=== PATIENT | female | born 1955 | race Caucasian/White ===

== ENCOUNTER 2020-03-28 16:28 | Emergency (ER) | payer OTHER, SELFPAY ==
[2020-03-28 16:29] VITALS: BP 191/98; PULSE 96; RESP 16; TEMP 36.4; O2SAT 96; BMI 28.3
--- NOTE | 2020-03-28 16:43 | MRI_ITS ---
STUDY: MRI LUMBAR SPINE WITHOUT CONTRAST REASON FOR EXAM: Female, 64 years old. L leg pain x 2 weeks TECHNIQUE: Standardized fat and water weighted pulse sequences were obtained in the sagittal and axial planes. COMPARISON: None FINDINGS: T12-L1: Normal endplates. Normal disc height, hydration and morphology. Normal bilateral facet joints. Normal central canal and bilateral lateral recesses. Normal bilateral intervertebral neural foramina. Normal lumbar lordosis. There is no substantial scoliosis. Normal conus medullaris that terminates at the L1-2: There is mild posterior bulging annulus. There is ligamentous hypertrophy. There is mild central canal narrowing. Mild bilateral foraminal stenosis L2-3: Normal endplates. Normal disc height, hydration and morphology. Normal bilateral facet joints. Normal central canal and bilateral lateral recesses. Normal bilateral intervertebral neural foramina. L3-4: There is mild posterior bulging annulus. There is mild central canal narrowing. Ligamentous hypertrophy and mild facet degenerative changes. There is no foraminal stenosis. L4-5: There is posterior bulging annulus. There is mild increased T2 signal within the posterior disc margin. There is mild central canal narrowing. The is ligamentous hypertrophy with mild to moderate facet degenerative changes. There is mild right foraminal stenosis. There is no left foraminal stenosis. L5-S1: There is moderate to large left paracentral, posterior lateral disc protrusion. There is compression on the left S1 nerve root within the central canal. There is mild to moderate central canal stenosis. There is no right foraminal stenosis. There is mild left foraminal stenosis. There are moderate facet degenerative changes. Normal visualized sacral ala. Normal visualized paraspinous soft tissue structures. MRI/Spine Lumbar (Routine) IMPRESSION: At L5-S1 there is a moderate to large left paracentral, posterior lateral disc protrusion. There is compression on the left S1 nerve root within the central canal. There is mild to moderate central canal stenosis. There is no right foraminal stenosis. There is mild left foraminal stenosis. At L4-L5 there is posterior bulging annulus with likely small annular tear, mild central canal stenosis. Mild right foraminal stenosis At L1-L2 there is mild posterior bulging annulus. There is ligamentous hypertrophy. There is mild central canal narrowing. Mild bilateral foraminal stenosis Electronically Signed: Jesus Neely, at 18:57 EDT Tel , Service support ,
[2020-03-28] MEDS: Ondansetron 4 MG/2 ML Vial IV (17:13)
[2020-03-28] MEDS: Morphine 4 MG/ML Syringe IV (17:14)
--- NOTE | 2020-03-28 17:29 | ED.VIS.BACK ---
History of Present Illness Chief Complaint: Lower Extremity Injury Informant: Patient Onset: Weeks - Onset of pain 2 weeks ago worse past 48 hours Context: Sudden Onset Injury: - - No history of trauma Timing: Continuous Quality: Aching, Throbbing Location: Lumbar, Buttock, Left Leg Current Severity: Mild Maximum Severity: Severe Worsened by: improves with: Movement, Ambulation, Bending Relieved by: Nothing Associated Symptoms: Numbness, Tingling, Radiation to Left Leg, - - Denies bowel bladder dysfunction. Patient denies saddle paresthesia or anesthesia. Patient reports difficulty ambulating. Narrative: Patient is a 64-year-old woman who presents with acute left lower back pain that radiates posteriorly down to her mid foot. She complains of numbness from the popliteal fossa and radiation to the plantar surface of her foot. She denies history of prior low back problems. She is had prior cervical surgery. She is not immune suppressed. There is no history of trauma. Patient took her 's Flexeril. She was in directed that this is not advisable since there are significant complications that can occur in patients over the age of 55. Patient denies GI symptoms. She denies dysuria, frequency, urgency or hematuria. She denies night sweats or weight loss. She denies gynecologic symptoms. Prior similar symptoms: No Recent Illness/Hospitalization: No - Past Medical History (1) No significant past medical history (2) Hypertension Status: Chronic (3) GERD (gastroesophageal reflux disease) Status: Chronic Past Medical History - Allergies and Home Meds Allergies/Adverse Reactions: Allergies Penicillins Allergy (Verified 03/28/20 16:29) Hives acetaminophen [From Vicodin] Adverse Reaction (Verified 03/28/20 16:29) Nausea/Vom/Diarrhea hydrocodone [From Vicodin] Adverse Reaction (Verified 03/28/20 16:29) Nausea/Vom/Diarrhea meperidine [From Demerol] Adverse Reaction (Verified 03/28/20 16:29) Nausea/Vom/Diarrhea morphine Adverse Reaction (Verified 03/28/20 16:29) Nausea/Vom/Diarrhea Primary Care Physician: Mark Manley [Primary Care Provider] - Prior records reviewed: Yes Surgical History: noncontributory Lives: Spouse/ Significant Other Smoking Status: Never smoker Alcohol: None Drugs: None Review of Systems General: Denies: Chills, Fever, Malaise, Subjective, Sweats, Weight loss ENT: Denies: Rhinorrhea, Sore throat Cardiovascular: Denies: Chest pain, Palpitations Respiratory: Denies: Dyspnea, Cough, Dyspnea on exertion Gastrointestinal: Denies: Abdominal pain, Nausea, Vomiting, Diarrhea, Melena, Hematochezia Genitourinary: Denies: Dysuria, Hematuria, Frequency Musculoskeletal: Reports: Back pain, Extremity Pain. Denies: Myalgias, Arthralgias, Neck pain, Swelling, -, - Skin: Denies: Rash, Wounds Neurological: Reports: Parasthesia, Numbness, - - Posterior aspect left leg from the popliteal fossa and including the plantar surface of left foot. Denies: Headache Psych: Denies: Depression, Anxiety Physical Exam Vital Signs/Narrative: Vital Signs Temp Pulse Resp BP Pulse Ox 03/28/20 16:29 97.5 F L 96 16 191/98 H 96 Inital Vital Signs reviewed: Yes General: Well nourished, Well developed Head: Normocephalic, Atraumatic Eyes: Perrl, EOMI. Negative for: Pale conjunctiva, Scleral icterus ENT: Moist mucous membranes, No rhinorrhea Neck: Supple, Nontender, No lymphadenopathy, No JVD Cardiovascular: Regular rate, Regular rhythm, No murmurs, Normal S1, Normal S2 Respiratory: No distress, CTA bilaterally, Chest nontender Abdomen: Soft, Nontender, Nondistended, Normal bowel sounds, No masses Rectal: - - Normal perianal sensation and good rectal tone Back: Normal Inspection, Nontender, Negative SLR - Right, Positive SLR - Left. Negative for: Surgical Scar, Spinal tenderness, Paraspinal Tenderness, CVA tenderness Extremeties: Nontender, No edema, Strong Pulses, Symmetric. Negative for: Tenderness, Edema Skin: Normal color, No rash, No Trauma. Negative for: Cyanosis, Diaphoresis, Jaundice Neuro: Alert, Oriented, Normal Strength, Normal Sensation, Normal DTR, Normal Gait, - - Patient unable to walk on toes. She has weakness versus pain on the left side. She is unable to perform 1 legged squat on the left side. This may be secondary to pain in all likelihood. Reflexes: Right Patellar - 1+, Right Achilles - 1+, Left Patellar - Plus minus, Left Achilles - Absent. Negative for: Right Clonus, Right Babinski, Left Clonus, Left Babinski Psychological: Normal affect Diagnostic/Tx/Re-eval Impressions Lumbar Spine MRI 03/28/20 16:43 IMPRESSION: At L5-S1 there is a moderate to large left paracentral, posterior lateral disc protrusion. There is compression on the left S1 nerve root within the central canal. There is mild to moderate central canal stenosis. There is no right foraminal stenosis. There is mild left foraminal stenosis. At L4-L5 there is posterior bulging annulus with likely small annular tear, mild central canal stenosis. Mild right foraminal stenosis At L1-L2 there is mild posterior bulging annulus. There is ligamentous hypertrophy. There is mild central canal narrowing. Mild bilateral foraminal stenosis Electronically Signed: Jesus Neely, at 18:57 EDT Tel , Service support , 03/28/20 16:43 MRI Lumbar [Spine Lumbar (Routine)] [MRI] Stat - Medical Decision Making With absent ankle reflex foot drop and numbness on the lateral aspect of the left foot concern patient has L5-S1 herniated disc. Since she has no history of prior back surgery MRI was obtained to evaluate for acute herniated disc versus other causes. She was medicated with IV opiate analgesia. Patient is able to ambulate. Since she is able to ambulate will discharge with pain medicine and refer to spine surgeon. ED Disposition - Plan for ED Patient: Disposition: Home or Assisted Living Diagnosis: Herniated nucleus pulposus, L5-S1 Instructions: ED LUMBAR RADICULOPATHY Prescriptions: Oxycodone HCl/Acetaminophen [Percocet 5/325] 1 tab PO Q6H PRN PRN 5 Days #20 tab PRN Reason: Back pain Prescription Printed Referrals: Mark Manley [Primary Care Provider] - Nicholas Hernandez MD [NON-STAFF] - 5-7 Days Additional Instructions: Call Dr. Pako Hernandez's office on Monday to be seen later this week. If you are unable to urinate, loss of bowel control or unable to stand or walk because of weakness in your left lower extremity return to the emergency department immediately Do not take your 's Flexeril.
[2020-03-28 20:14] VITALS: BP 163/92; PULSE 83; RESP 16; O2SAT 98
--- NOTE | 2020-03-28 20:17 | ED.RN ---
REVIEWED D/C INSTRUCTIONS, FOLLOW UP CARE, PRESCRIPTION, AND S/S THAT WOULD WARRANT A RETURN TO THE ED WITH PT. PT VERBALIZED AN UNDERSTANDING AND DENIES FURTHER QUESTIONS FOR THIS RN. PT SKIN P/W/D, RESP EVEN AND UNLABORED, PT A&O X 3, NO DISTRESS NOTED. PT AMBULATED OUT OF ED USING CANE, GAIT STEADY.
--- OUTSIDE RECORDS SUMMARY | 2020-09-01 08:02 | XMS RPT_ITS | CCD ---
:1955 External Reference #:[id number] Author Organization [facility] Care Team Providers Name Role Phone Adrien Hernandez MD Unavailable Jac Fox Unavailable BROWN Admitting Unavailable BROWN Attending Unavailable BROWN Primary Care Unavailable BROWN Consulting Unavailable PROVIDER Consulting Unavailable PROVIDER Consulting Unavailable PROVIDER Consulting Unavailable BROWN Admitting Unavailable BROWN Attending Unavailable BROWN Primary Care Unavailable BROWN Consulting Unavailable PROVIDER Consulting Unavailable PROVIDER Consulting Unavailable PROVIDER Consulting Unavailable BROWN Admitting Unavailable BROWN Attending Unavailable BROWN Primary Care Unavailable BROWN Consulting Unavailable PROVIDER Consulting Unavailable PROVIDER Consulting Unavailable PROVIDER Consulting Unavailable WINKLER, C Admitting Unavailable WINKLER, C Attending Unavailable BROWN Referring Unavailable WINKLER, C Primary Care Unavailable BROWN Consulting Unavailable PROVIDER Consulting Unavailable PROVIDER Consulting Unavailable PROVIDER Consulting Unavailable BROWN Consulting Unavailable BROWN Admitting Unavailable BROWN Attending Unavailable BROWN Primary Care Unavailable PROVIDER Consulting Unavailable PROVIDER Consulting Unavailable PROVIDER Consulting Unavailable Allergies Reported Allergen Reaction(s) Severity Date of Onset Location Acetaminophen / Moderate Romain Pomeren e [facility] Rep[facility] (Qualifier Value) atorvastatin Moderate Romain Pomerene ([facility]) Repository (Qualifier Value) Meperidine Moderate Romain Pomerene ([facility]) Repository (Qualifier Value) Meperidine Moderate Romain Pomerene ([facility]) Repository (Qualifier Value) Morphine Moderate Romain Pomerene ([facility]) Repository (Qualifier Value) Penicillin hives Critical, 04-02-2020 - [facility] Critical [facility]opa[facility] vee ([id number]) Penicillin Moderate Romain Pomerene ([facility]) Repository (Qualifier Value) Penicillins Moderate Romain Pomerene ([facility]) Repository (Qualifier Value) Piroxicam Moderate Romain Pomerene ([facility]) Repository (Qualifier Value) Medications Medication Name Sig Date Prescriber Location Acetaminophen / PERCOCET 5-325 MG TABS [facility] oxyCODONE one tablet every 6 0 Orthopaed ic hours as needed [facility] OXYCODONE-ACETAMINOPHEN (443 63) [phone] Nicholas Hernandez MD amLODIPine AMLODIPINE BESYLATE 5 [facility] MG TABS one tablet 0 Orthopaed ic daily Center - No rth AMLODIPINE BESYLATE [facility] inic [phone] Nicholas Jurado ([id number] ) Mary PILLAI Losartan LOSARTAN POTASSIUM 100 [facility] MG TABS one tablet 0 Orthopaed ic daily Center - No rth LOSARTAN POTASSIUM [facility] Cli vee [phone] Nicholas Jurado (03823 ) Mary PILLAI methylPREDNISolone MEDROL 4 MG TBPK take [facility] as directed 0 Mary PILLAI Ortho paedic METHYLPREDNISOLONE [facility] [phone] [facility] Mary PILLAI (07102) Omeprazole OMEPRAZOLE 40 MG CPDR [facility] one capsule daily 0 Orthopaedi c OMEPRAZOLE [facility] [phone] [facility] Mary PILLAI (35317) Problems Active Problems Category Problem Name Status Date Location Nausea and vomiting Nausea [facility] Other aftercare Surgical follow-up Active 05-19-2020 - [facility] (14299) Spondylosis; Intervertebral disc Active 04-02-2020 - [facility] intervertebral disc disorders with [facility] Center disorders; other back radiculopathy, lumbar - [facility] problems region Clinic (91120) Past or Other Problems Category Problem Name Status Date Location Other injuries and Unspecified injury Completed 09-02-2019 - Alberto Singletary conditions due to of right foot, [facility] external causes initial encounter (88542) Unclassified Problem [facility] (98899) Results Result Name Value Range Unit Interpretation Flag Date Location tsh on 2020-08-11 TSH Qn 1.32 0.40-4.50 mIU/L Normal 08-11-2020 [facility] (59581) Comment: Performed By: #### 42322, 37 2, 899 #### [facility], [address] [place] [address] Lab Manager: Indio solano MD comprehensive metabolic panel on 2020-08-11 Albumin [Mass/Vol] 4.2 3.6-5.1 g/dL Normal 08-11-2020 [facility] (01926) Comment: Performed By: #### 72200, 37 2, 899 #### [facility], [address] [place] [address] Lab Manager: Indio solano MD Albumin/Globulin [Mass 1.6 1.0-2.5 (calc) Normal 020 [facility] ratio] (36236) Comment: Performed By: #### 75431, 37 2, 899 #### [facility], [address] [place] [address] Lab Manager: Indio solano MD ALP [Catalytic 116 37-153 U/L Normal 08-11-2020 [facility] (75429) activity/Vol] Comment: Performed By: #### 67250, 37 2, 899 #### [facility], [address] [place] [address] Lab Manager: Indio solano MD ALT [Catalytic activity/Vol] 14 6-29 U/L Normal 0 08-11-2020 [facility] (27779) Comment: Performed By: #### 86852, 37 2, 899 #### [facility], [address] [place] [address] Lab Manager: Indio solano MD AST [Catalytic activity/Vol] 14 10-35 U/L Normal 0 08-11-2020 [facility] (33703) Comment: Performed By: #### 61465, 37 2, 899 #### [facility], [address] [place] [address] Lab Manager: Indio solano MD Bilirubin [Mass/Vol] 0.5 0.2-1.2 mg/dL Normal 0 [facility] (38745) Comment: Performed By: #### 06825, 2, 899 #### [facility], [address] [place] [address] Lab Manager: Indio solano MD Calcium [Mass/Vol] 9.6 8.6-10.4 mg/dL Normal 08-11-2020 [facility] (64800) Comment: Performed By: #### 38448, 2, 899 #### [facility], [address] [place] [address] Lab Manager: Indio solano MD Chloride [Moles/Vol] 100 98-110 mmol/L Normal 0 [facility] (31461) Comment: Performed By: #### 48406, 2, 899 #### [facility], [address] [place] [address] Lab Manager: Indio solano MD CO2 [Moles/Vol] 21 20-32 mmol/L Normal 08-11-[address] [facility] (63427) Comment: Performed By: #### 57986, 2, 899 #### [facility] [address] Lab Manager: Indio solano MD Creatinine [Mass/Vol] 0.87 0.50-0.99 mg/dL Normal 08-11-20 20 [facility] (62467) Comment: Result Comment: For patients >49 years of age, the reference limit for Creatinine is approximat paulo 13% higher for people identified as -Americ an. Performed By: #### 30155, 2, 899 #### [facility], [address] [place] [address] Lab Manager: Indio solano MD eGFR NON-AFR. 70 > OR = 60 mL/min/1.73m2 Normal 08-11-2020 [facility] GABONESE (21539) Comment: Performed By: #### 06315, 37 2, 899 #### [facility], [address] [place] [address] Lab Manager: Indio solano MD GFR/1.73 sq M 82 > OR = 60 mL/min/1.73m2 Normal 08-11-2020 [facility] predicted among (000 00) blacks MDRD (S/P/Bld) [Vol rate/Area] Comment: Performed By: #### 97492, 37 2, 899 #### [facility], [address] [place] [address] Lab Manager: Indio solano MD Globulin (S) 2.6 1.9-3.7 g/dL (calc) Normal 08-11-2020 [facility] [Mass/Vol] (38785) Comment: Performed By: #### 42442, 37 2, 899 #### [facility], [address] [place] [address] Lab Manager: Indio solano MD Glucose [Mass/Vol] 353 65-99 mg/dL High 08-11-2020 [facility] (53120) Comment: Result Comment: Fasting reference interval For someone without known di abetes, a glucose value >125 mg/dL indicates t hat they may have diabetes and this should be confirmed with a follow-up test. Performed By: #### 04916, 37 2, 899 #### [facility], [address] [place] [address] Lab Manager: Indio solano MD Potassium [Moles/Vol] 4.4 3.5-5.3 mmol/L Normal 08-11-20 20 [facility] (42240) Comment: Performed By: #### 51766, 37 2, 899 #### [facility], [address] [place] [address] Lab Manager: Indio solano MD Protein [Mass/Vol] 6.8 6.1-8.1 g/dL Normal 08-11-2020 [facility] (30717) Comment: Performed By: ###Lucas 52709, 37 2, 899 #### [facility], [address] [place] [address] Lab Manager: Indio solano MD Sodium [Moles/Vol] 133 135-146 mmol/L Low 08-11-2020 [facility] (29892) Comment: Performed By: #### 65808, 37 2, 899 #### [facility], [address] [place] [address] Lab Manager: Indio solano MD Urea nitrogen [Mass/Vol] 21 7-25 mg/dL Normal 08-11 [facility] (40356) Comment: Performed By: #### 26350, 37 2, 899 #### [facility], [address] [place] [address] Lab Manager: Indio solano MD Urea nitrogen/Creatinine NOT APPLICABLE 05-11 Normal 08-11-2020 [facility] [Mass ratio] (09820) Comment: Performed By: #### 76797, 37 2, 899 #### [facility], [address] [place] [address] Lab Manager: Indio solano MD c-peptide on 2019-0 08-11 C-PEPTIDE 2.48 0.80-3.85 ng/mL Normal 08-11-2020 [facility] (19434) Comment: Performed By: #### 61218, 37 2, 899 #### [facility], [address] [place] [address] Lab Manager: Indio solano MD coronavirus pcr [ccl] on 2020-06-18 COVID 19 Result DEHYDRATOR TENDER Negative CORNEG Normal 06-18-2020 [facility] ( 70861) Comment: Result Comment: Negative for COVID19 (SARS CoV2) by PCR. This test was developed and its performance characteristics determined by [facility] [place]. This test has bee n authorized by FDA under an Emergency Use Authorization (EUA). This test has been validated in accordance with the FDA's Guidance Document Policy for Diagnostics Test ing in Laboratories Certified to Perform High Complexity Testing under CLI A prior to Emergency use Authorization for Coronavirus Disease 2019 dur ing the Public Health Emergency issued on January 18, 2020. [facility] [address] [place] [address] Teddy Dick III, M.D. [id number] Performed By: #### [id number] ## ## [facility] [place] [address]68 COVID 19 Source DEHYDRATOR TENDER Nasopharyngeal Swab Normal 0 06-18-2020 [facility] ( 08666) Comment: Performed By: #### [id number] ## ## [facility] [place] [address] coronavirus 2019 on 2020-06-18 COVID 19 Result DEHYDRATOR TENDER Negative for COVID19 Normal 06-18-2020 [facility] (SARS CoV2) by PCR. Reference Lab (16825) Comment: Result Comment: Negative for This test was developed and its performance characteristics determined by [facility] [place]. This test has been authorized by FDA under an Emergency Use Authorization (EUA). This test has been validated in accordance with the FDA's Guidance Document Policy for Diagnostics Testing in Laboratories Certified to Perform High Complexity Testing under CLIA prior to Emergency use Authorization for Coronavir us Disease 2019 during the Public Health Emergency issued on January 18, 2020. COVID19 (SARS This test was developed and its performance characteristics determined by [facility] [place]. This test has been authorized by FDA under an Emergency Use Authorization (EUA). This test has been validated in accordance with the FDA's Guidance Document Policy for Diagnostics Testing in Laboratories Certified to Perform High Complexity Testing under CLIA prior to Emergency use Authorization for Coronavir us Disease 2019 during the Public Health Emergency issued on January 18, 2020. CoV2) by PCR. This test was developed and its performance characteristics determined by [facility] [place]. This test has been authorized by FDA under an Emergency Use Authorization (EUA). This test has been validated in accordance with the FDA's Guidance Document Policy for Diagnostics Testing in Laboratories Certified to Perform High Complexity Testing under CLIA prior to Emergency use Authorization for Coronavir us Disease 2019 during the Public Health Emergency issued on January 18, 2020. coronavirus 2019 on 2020-06-17 COVID 19 Source DEHYDRATOR TENDER DEHYDRATOR TENDER Normal 06-17-2020 [facility] (75653) clinical summary: hmspatientid on 2020-05-19 NOP 05-19-2020 - 05-19-2020 [facility] [place] [facility] (08367) office visit: new - 1st visit with pract maria guadalupe, rm: 1 on 2020-04-02 NEGATED: Highlighted of the lumbar on - [facility] rowMRI (magnetic 03/28/2020 at 0 [facility] [place] - resonance imaging) [facility] history imported via (31944) nucleus NEGATED: Highlighted never smoker 2019 - [facility] rowTobacco smoking 04-02-2020 [facility] [place] [facility] (14392) clinical summary: scanned history summar y on 2020-04-02 brother(s) of Unknown 04-02-2020 [facility] patient alive or 04-02-2020 Or [facility]opaedic [facility] (21728) Data entered by 5 days per week 04-02-20 20 - [facility] patient exercise 04-02-2020 Or thopaedic frequency Center - [facility] (97592) Data entered by walkingother 04-02-2020 - [facility] patient exercise 04-02-2020 Or [facility]opaedic type Center - [facility] ic (27210) data entered by No 04-02-2020 - C [facility] patient, alcohol 04-02-2020 Or thopaedic (ethanol or ETOH) Ce nter - [place] use [facility] Clin ic (83990) Data entered by Penicillin 04-02-2020 - [facility] patient, allergy 04-02-2020 Or thopaedic list Center - [facility] (27490) data entered by No 04-02-2020 - C [facility] patient, drug (of 04-02-2020 O rthopaedic abuse) use [facility] ic (88379) data entered by Retired 04-02-2020 - C [facility] patient, Employer 04-02-2020 O rthopaedic Name Center - [facility] (75638) data entered by No 04-02-2020 [facility] exercise 04-02-2020 O rthopaedic history Center - N orth [facility] Clin ic (54507) data entered by CancerDiabetes - non-insulin 04-02-2020 [facility] patient, father's dependentHigh blood pressure 04-02-2020 Orthopaedic medical history Cent er [facility] Clin ic (53678) Data entered by Abdominal 04-02-2020 - [facility] patient, history of SurgeryAppendectomyHand 04-02-2020 Orthopaedic past surgeries surgeryCarpal C enter - [place] [facility] surgery other (20397 ) data entered by High blood pressure 03-20 [facility] patient, mother's 04-02-2020 O rthopaedic medical history Cent er [facility] Clin ic (95849) data entered by High blood 04-02-2020 [facility] patient, past pressureObstructive sleep 04-02-2020 Orthopaedic medical history apneaStomach C [facility] ulcersHypertension C [facility] (21937) data entered by never smoker 04-02-2020 [facility] patient, social 04-02-2020 Ort hopaedic history, current [facility] - [place] smoker [facility] Clin ic (71349) data entered by 04-02-2020 [facility] patient, social 04-02-2020 Ort hopaedic history, marital [facility] - [place] status [facility] Clin ic (27440) father of patient Alive 04-02-2020 [facility] is alive or 04-02-2020 Orthopa edic Center - [facility] ic (35305) Housing Type: House 04-02-2020 - [facility] apartment, house, 04-02-2020 [facility], Ce nt - [facility] Clin ic (05026) housing unit size 1 Floor 04-02-2020 - [facility] (asthma 04-02-2020 Orthopaed ic environmental [facility] history, housing) Co ast Clinic (from single family (16606) to don't know) medical history of Diabetes - non-insulin 04-02-2020 [facility] patient's sister dependent 04-02-2020 Or thopaedic Center [facility] ic (28129) mother of patient Alive 04-02-2020 - [facility] is alive or 04-02-2020 Orthopa edic Center - N [facility] ic (29176) clinical summary: hmspatientid on 2020-04-02 NOP 04-02-2020 - 04-02-2020 [facility] Orthopaedic Center - N [facility] (84751) emergency report on 2019-09-27 EMERGENCY REPORT [facility] Normal 09-27 [facility] EMERGENCY ROOM REPORT (03286) NAME ACCOUNT SEX AGE ADMIT DISCHARGE PT MED. RECORD# NUMBER DATE DATE TYPE CASIE [id number] F 64 09/24/19 09/24/19 3 LIANNE Bacon [address] ROOM: ER DATE OF : 1955 DICTATING PHYSICIAN: Govind Winkler CHIEF COMPLAINT: Dizziness. HISTORY OF PRESENT ILLNESS: Patient states yesterday she felt fine. After awaking today, she was up and ambula tory and while doing so, had an episode of dizziness that started when she was moving. She had a headache with this and felt unsteady and spinning sensation. She took some Tylenol and laid down and slept for several hours and felt better when she wok e up. She was lying on the bed, talking on the phone without any symptoms, but as soon as she stood up, she developed fairly marked vertigo again with nausea, v omiting and some minimal diaphoresis. She states it is not bad if she lies very still. She continues to have some ongoing nausea. Mild headache at this point, but not severe. No chest pain. No shortness of breath. No numbness or tingling to her extremities. She is able to ambulate with assistance, feeling a bit unsteady. She has not had ep isodes like this in the past, though has had some slight dizziness in the past. PAST MEDICAL HISTORY: Significant for hypertension, divertic ulitis. PAST SURGICAL HISTORY: Previous hysterectomy, appendec jayden, cholecystectomy. MEDICATIONS: Per medication reconciliation list. ALLERGIES: Multiple allergies per allergy list. SOCIAL HISTORY: She lives at home. Accom panied here with her . She does not smoke or drink alcohol. REVIEW OF SYSTEMS: No recent injury or trauma. No underlying heart or lung disease. No underlying neuro logic abnormality. She has no hearing deficits. No tinnitus. No bowel or bladder complaints. PHYSICAL EXAMINATION: A 64-year-old, pleasant female, alert and appropriate. Patient does not appear toxi c. Her skin is pink, warm and dry. Pupils are equal, round and reactive to light. Extra ocular muscles are intact. TMs, nose, mouth and throat all within normal limits. Neck i s supple without adenopathy. No carotid bruits or masses. Lungs are clear. No crackles or wheezes. Cardiac examination: Regular rhythm without any ectopy, murmurs, gallops or rubs. Abdomen is soft and nontender. She moves all Page 1 of 2 LIANNE JASON Emergency Room Report LIANNE JASON : 1955 extremities appropriately. N o focal weaknesses. Good peripheral pulses. Good capillary refill. Vital signs: Tempera ture 98.6, pulse 71, respirations 18, blood pressure 173/96. O2 saturation was 100%. DIAGNOSTIC DATA: Head CT was negative. A number of lab studies were obtained. These were all within normal limits. EMERGENCY DEPARTMENT COURSE AND TREATMENT: IV of normal sali ne was placed. She was given a lite r of IV fluids. Was given some Phenergan IV, some Zofran orally, and some meclizine o rally. She states that with the above meds and IV fluids, her nausea had resolved complete ly and her dizziness she states was about in half. Discussed management with her. Did feel like she wanted to go home and she was given a prescription for mec lizine, very limited activity. Also given a prescription for Zofran. Informed her of vest ibular rehab if symptoms do not improve significantly within the next day or 2. She is to follow up with Dr. Manley as needed returning if symptoms worsen. DIAGNOSIS: Benign positional vertigo. Dictated By: Govind Winkler MD 09/24/19 18:58 JOB #: [id number] Transcribed By: nadege 09/25/19 12:38 Electronically signed by: JUAN Winkler M.D. 09/27/19 07:06 Page 2 of 2 LIANNE JASON Emergency Room Report troponin on 2019-09 Troponin I.cardiac <0.01 0.00 - 0.05 ng/mL Normal 9 [facility] (74662) Comment: Result Comment: Elevated tro ponin (above the 99th percentile) usually indicates myocardial ischemia. Results must be in terpreted within the clinical setting. 1.Non-ischemic pathology can also cause elevated troponin levels (e.g., acute pulmonary embol ism, myocarditis, pericarditis, heart failure, intracranial injury, rhabdom yolisis, sepsis, shock and renal insufficiency). 2.Approximately 1% of health y adults have elevated troponin levels. 3.Analytical false positive results rarely occur(due to multiple interferences such as heterophile antibodi es). Performed By: #### [id number] ## ## [facility],[address] [place], [place] [address] prothrombin time and inr on 2019-09-24 INR Coag (Bld) [Relative time] Normal 09-24-2019 [facility] ( 56462) Comment: Result Comment: PROTHROMBIN TIME AND INR Performed By: #### [id number] ## ## [facility],[address] [place], [place] [address] INR Coag (PPP) [Relative 1.0 0.8 - 1.2 {INR} Normal 09-[address] [facility] ( 31989) Comment: Result Comment: THE HEMOS IL THROMBOPLASTIN REAGENT USED IN THE PROTHROMBIN TIME TEST INTERACTS WITH THE DRUG CUBICIN (DAPTOMYCIN) AND WILL RESULT IN FALSELY ELEVATED PT / INR RESULTS INR INTERPRETATION INR INDICATION PREVENTION AND TREATMENT OF THROMBOEMBOLISM ASSOCIATED WITH: 2.0 - 3.0 ATRIAL FIBRILLATIO N, BIOPROSTHETIC HEART VALVES, PULMONARY EMBOLISM, VENOUS THROMBOSIS, SYSTEMIC EMBOLISM POST MYOCARDIAL INFARCTION 2.5 - 3.5 MECHANICAL HEART V MONTIEL Performed By: #### [id number] ## ## [facility],[address] [place] [address]13 PT-COUMADIN 11.6 9.3 - 14.1 sec Normal 09-24-2019 [facility] (21050) Comment: Performed By: #### [id number] ## ## [facility],[address] [place], [place] [id number] ct brain w/o contrast on 2019-09-24 CT BRAIN W/O [facility] Normal 9 [facility] [address] [place], [place] [address] ([id number]) Patient: LIANNE JASON Phone#: : 1955 Age: 64 Gender: F Pt. Type: ER Account: [id number] Location: 052 Ordering: GOVIND WINKLER Exam Date: 09/24/2019/17:29 Family Phys: STEPHEN MANLEY Charge Code: 093323 Physician: [place] Order #: [id number] DLP Dose#: 57.5 mGy PROCEDURE: CT BRAIN WITHOUT CONTRAST COMPARISON: [facility], CT, BRAIN W/O CON, 07/15/2015, 4:43. INDICATIONS: Altered Sensory Function. TECHNIQUE: CT images were obtained without contrast material . All CT scans at this facilit y use dose modulation, iterative reconstruction, and/or weight based dosing when appropriate to reduce radiation dos e to as low as reasonably achievable. IV CONTRAST: No IV contrast used,0ml TOTAL DOSE: 57.5 CTDIvol(mGy) FINDINGS: CEREBRUM: No edema, hemorrha ge, mass, or inappropriate atrophy. Age indeterminant left external capsule lacunar infarct. CEREBELLUM: No edema, hemorrhage, mass, or inappropriate atr ophy. BRAINSTEM: No edema, hemorrhage, mass, or inappropriate atro phy. CSF SPACES: Ventricles, cist erns, and sulci are appropriate for age. No hydrocephalus, subarachnoid hemorrhage, or mass. SKULL: There is hyperostosis frontalis interna, a benign age related finding. SINUSES: Limited views demonstrate no si gnificant mucosal thickening or fluid. ORBITS: Limited views are unremarkable. OTHER: There are atheroscler otic calcifications of the intracranial arteries. There is material in the left external auditory canal. CONCLUSION: 1. Age-indeterminate lacunar infarct in the left external ca psule. 2. Otherwise no appreciable acute intracranial abnormality. Note: An acute ischemic event or extension chronic ischemic process may not be initially evid ent on CT. [facility] [address], [place] [address] Patient: LIANNE JASON Phone#: : 1955 Age: 64 Gender: F Pt. Type: ER Account: [id number] Location: [facility] Ordering: GOVIND WINKLER Exam Date: 09/24/2019/17:29 Family Phys: STEPHEN MANLEY Charge Code: 085456 Physician: [place] Order #: [id number] DLP Dose#: 57.5 mGy Dictated by: Digna Abdullahi MD on 09/24/2019 at 17:53 Approved by: Digna Abdullahi MD on 09/24/2019 at 17:53 cmp with egfr on 08-10-05 Age - Reported 64 years Normal 09-24-2019 [facility] (55068) Comment: Performed By: #### [id number] ## ## [facility],[address] [place] [address] 57193 Albumin [Mass/Vol] 4.5 3.4 - 4.8 g/dL Normal 09-24-2019 [facility] ( 86034) Comment: Performed By: #### [id number] ## ## [facility],[address] [place] [address] 73398 Albumin/Globulin [Mass 1.7 0.9 - 1.6 {ratio} High 019 [facility] ratio] [facility] (58270) Comment: Performed By: #### [id number] ## ## [facility],[address] [place] [address] 65321 ALK PHOS 82 38 - 126 U/L Normal 09-24-2019 [facility] (79407) Comment: Performed By: #### [id number] ## ## [facility],[address] [place] [address] 28954 ALT/SGPT 20 8 - 35 U/L Normal 09-24-2019 [facility] (12426) Comment: Performed By: #### [id number] ## ## [facility],[address] [place] [address] 29385 Anion gap [Moles/Vol] 14 10 - 20 mmol/L Normal 09-24-20 19 [facility] ( 87426) Comment: Performed By: #### [id number] ## ## [facility] [place] [address] 82228 AST/SGOT 16 13 - 39 U/L Normal 09-24-2019 [facility] (28747) Comment: Performed By: #### [id number] ## ## [facility],[address] [place] [address] 49465 B/C RATIO 21 0 - 30 ratio Normal 09-24-2019 [facility] (30047) Comment: Performed By: #### [id number] ## ## [facility],[address] [place] [address] 04906 Bilirubin [Mass/Vol] 0.3 0.0 - 1.5 mg/dl Normal 9 [facility] ( 71523) Comment: Performed By: #### [id number] ## ## [facility],[address] [place] [address] 57707 Calcium [Mass/Vol] 9.5 8.6 - 10.2 mg/dl Normal 09-24-2019 [facility] ( 77538) Comment: Performed By: #### [id number] ## ## [facility],[address] [place] [address] 73425 Chloride [Moles/Vol] 103 98 - 107 mmol/L Normal 9 [facility] ( 04316) Comment: Performed By: #### [id number] ## ## [facility],[address] [place] [address] 60385 CO2 [Moles/Vol] 26.8 21.0 - 31.0 mmol/L Normal 09-24-2019 [facility] ( 47743) Comment: Performed By: #### [id number] ## ## [facility],[address] [place] [address] 04144 Creatinine [Mass/Vol] 1.0 0.6 - 1.2 mg/dl Normal 09-24-20 19 [facility] ( 89038) Comment: Performed By: #### [id number] ## ## [facility],[address] [place] [address] 50966 GFR/1.73 sq M >60 60 - 999 mL/min/{1.73_m2} Normal 9 [facility] predicted [facility] non-blacks MDRD (000 00) (S/P/Bld) [Vol rate/Area] Comment: Result Comment: ACCORDING TO THE NATIONAL KIDNEY DISEASE EDUCATION PROGRAM(NKDE), A NORMAL eGFR IS A VALUE GREATER THAN OR E QUAL TO 60 ML/MIN/1.73 SQ METERS. CHRONIC KIDNEY DISEASE: <60m L/MIN/1.73 SQ METERS KIDNEY FAILURE: <15mL/MIN/1. 73 SQ METERS THIS TEST SHOULD ONLY BE USE D FOR PATIENTS 18 YEARS OF AGE AND OLDER. Performed By: #### [id number] ## ## [facility],[address] [place] [address] 14712 GFR/1.73 sq M predicted 56 60 - 999 ML/MINUTE Low 2018 [facility] among non-blacks MDRD Hospital (03294) (S/P/Bld) [Vol rate/Area] Comment: Performed By: #### [id number] ## ## [facility],[address] [place] [address] 36071 GFR/1.73 sq M predicted among Normal 09-24-2019 [facility] non-blacks MDRD (S/P/Bld) [Vol Hospital (95292) rate/Area] Comment: Result Comment: COMPREHENSIV E METABOLIC PANEL Performed By: #### [id number] ## ## [facility],[address] [place] [address] 20488 Globulin (S) [Mass/Vol] 2.7 1.5 - 3.8 G/DL Normal 2018 [facility] ( 43888) Comment: Performed By: #### [id number] ## ## [facility],[address] [facility] 84531 Glucose [Mass/Vol] 116 74 - 106 mg/dl High 09-24-2019 [facility] (58824) Comment: Performed By: #### [id number] ## ## [facility],[address] [place] [address] 14458 Potassium [Moles/Vol] 3.7 3.5 - 5.1 mmol/L Normal 09-24-20 19 [facility] ( 60547) Comment: Performed By: #### [id number] ## ## [facility],[address] [place] [address] 83106 Protein [Mass/Vol] 7.2 6.4 - 8.3 g/dl Normal 09-24-2019 [facility] ( 39162) Comment: Performed By: #### [id number] ## ## [facility],[address] [place] [address] 88638 Sodium [Moles/Vol] 140 136 - 145 mmol/l Normal 09-24-2019 [facility] ( 66736) Comment: Performed By: #### [id number] ## ## [facility],[address] [place] [address] 82469 Urea nitrogen [Mass/Vol] 21 6 - 20 mg/dl High 09-24 [facility] ( 87296) Comment: Performed By: #### [id number] ## ## [facility],[address] [place] [address] 39611 cbc + diff on 09-24 Other RARE LARGE PLATELETS Normal 9 [facility] (27696) Comment: Performed By: #### [id number] ## ## [facility],[address] [facility] 13477 Basophils (Bld) 0.10 0.00 - 0.10 x10EE3/UL Normal 09-24-2019 Jordi dipti [place] [#/Vol] [facility] (57823) Comment: Performed By: #### [id number] ## ## [facility],[address] [place] [address] 98599 Basophils/100 WBC (Bld) 0.9 0.0 - 2.0 % Normal 2018 [facility] ( 19823) Comment: Performed By: #### [id number] ## ## [facility],[address] [place] [address] 11592 CBC + DIFF Normal 09-24-2019 [facility] (99703) Comment: Result Comment: CBC-COMPLETE BLOOD COUNT Performed By: #### [id number] ## ## [facility],[address] [place] [address] 01359 Eosinophils (Bld) 0.10 0.00 - 0.50 x10EE3/UL Normal 09-24-2019 [facility] [#/Vol] [facility] (34754) Comment: Performed By: #### [id number] ## ## [facility],[address] [place] [address] 23993 Eosinophils/100 WBC (Bld) 2.0 0.0 - 7.0 % Normal [facility] ( 51767) Comment: Performed By: #### [id number] ## ## [facility],[address] [place] [address] 29684 Erythrocyte distribution 14.7 12.0 - 15.6 % Normal [facility] width (RBC) [Ratio] [facility] (76263) Comment: Performed By: #### [id number] ## ## [facility],[address] [place] [address] 34184 Hematocrit (Bld) [Volume 38.6 34.0 - 46.0 % Normal [facility] ( 73479) Comment: Performed By: #### [id number] ## ## [facility],[address] [place], [place] [id number] Hemoglobin (Bld) 13.2 12.0 - 16.0 g/dl Normal 09-24-2019 [facility] [Mass/Vol] [facility] (40688) Comment: Performed By: #### [id number] ## ## [facility],[address] [place] [address] Lymphocytes (Bld) 1.50 0.80 - 2.80 x10EE3/UL Normal 09-24-2019 [facility] [#/Vol] [facility] (08235) Comment: Performed By: #### [id number] ## ## [place] [id number] Lymphocytes/100 WBC (Bld) 19.5 20.0 - 45.0 % Low [facility] ( 71726) Comment: Performed By: #### [id number] ## ## [place] [id number] MANUAL DIFF REVIEWED Normal 09-24-2019 [facility] (51366) Comment: Performed By: #### [id number] ## ## [place] [id number] MCH (RBC) [Entitic mass] 27 27 - 33 pg Normal 09-24 [facility] ( 95207) Comment: Performed By: #### [id number] ## ## [place] [id number] MCHC (RBC) [Mass/Vol] 34 32 - 36 X10 3 Normal 09-24-20 19 [facility] ( 04628) Comment: Performed By: #### [id number] ## ## [place] [id number] MCV (RBC) [Entitic vol] 80 80 - 99 fl Normal 2018 [facility] ( 30386) Comment: Performed By: #### [id number] ## ## [facility],[address] [place] [address] 18969 Monocytes (Bld) 0.70 0.20 - 1.00 x10EE3/UL Normal 09-24-2019 [facility] [#/Vol] [facility] (42303) Comment: Performed By: #### [id number] ## ## [facility],[address] [place] [address] 18496 MONOS % 9.1 0.0 - 10.0 % Normal 09-24-2019 [facility] (85483) Comment: Performed By: #### [id number] ## ## [facility],[address] [place] [address] 14917 Morphology Sony (Bld) SEE BELOW Normal [facility] [Interp] [facility] ( 11646) Comment: Performed By: #### [id number] ## ## [facility],[address] [place] [address] 54726 Neutrophils (Bld) 5.10 1.50 - 7.10 x10EE3/UL Normal 09-24-2019 [facility] [#/Vol] [facility] (23816) Comment: Performed By: #### [id number] ## ## [facility],[address] [place] [address] 46638 Neutrophils/100 WBC (Bld) 68.5 46.0 - 76.0 % Normal [facility] ( 70136) Comment: Performed By: #### [id number] ## ## [facility],[address] [place] [address] 76225 Platelet mean volume 10.6 6.6 - 10.5 fl High 09-24-20 19 [facility] (Bld) [Entitic vol] [facility] (93226) Comment: Result Comment: AUTOMATED DI FFERENTIAL Performed By: #### [id number] ## ## [facility],[address] [place] [address] 83866 Platelets (Bld) [#/Vol] NORMAL Normal 2018 [facility] (67093) Comment: Performed By: #### [id number] ## ## [facility],[address] [place] [address] 66557 Platelets (Bld) 205 150 - 450 x10EE3/UL Normal 09-24-2019 Alberto Singletary [#/Vol] [facility] (04712) Comment: Performed By: #### [id number] ## ## [facility],[address] [place] [address] 38533 RBC (Bld) [#/Vol] 4.85 4.10 - 5.30 x 10EE6/UL Normal 9 [facility] (39708) Comment: Performed By: #### [id number] ## ## [facility],[address] [place] [address] 33877 WBC (Bld) [#/Vol] 7.5 4.5 - 10.8 x 10EE3/UL Normal 09-24-2019 [facility] ( 55919) Comment: Performed By: #### [id number] ## ## [facility],[address] [place], [place] [id number] c-reactive protein on 2019-09-24 CRP [Mass/Vol] 0.50 0.00 - 1.00 mg/dl Normal 09-24-2019 [facility] ( 19845) Comment: Performed By: #### [id number] ## ## [facility],[address] [place] [address] 06136 aptt on 2019-09-24 aPTT Coag (Bld) [Time] 28.1 25.4 - 38.4 sec Normal 09-24 [facility] ( 81189) Comment: Performed By: #### [id number] ## ## [facility],[address] [place] [address] 39218 foot complete rt on 2019-09-02 FOOT COMPLETE RT [facility] Normal 09-02 [facility] [address] [place] [address] ([id number]) Patient: LIANNE JASON Phone#: : 1955 Age: 64 Gender: F Pt. Type: Out Account: [id number] Location: 05 Ordering: STEPHEN MANLEY Exam Date: 09/02/2019/11:55 Family Phys: Charge Code: 492170 Physician: [place] Order #: [id number] DLP Dose#: PROCEDURE: X-RAY FOOT RT COMPLETE MIN 3 VIEWS COMPARISON: None. INDICATIONS: Injury. FINDINGS: BONES: No significant arthro carlotta or acute abnormality. A small calcaneal spur is present. Mild degenerative changes are present at the navicular joint . SOFT TISSUES: Negative. No visible soft tissue swelling. EFFUSION: None visible. OTHER: Negative. CONCLUSION: No acute disease. Dictated by: Netta Lynch MD on 09/02/2019 at 15:28 Approved by: Netta Lynch MD on 09/02/2019 at 15:28 final surgical pathology report on 2018-01-09 Final Surgical . Pathology ReportsAccession: Kayleigh resendez 01-09-2018 [facility] Pathology Collected Date/Time: Received [facility] ([place]) Report Date/Time: (68739) Pathologist:[id number] 01/04/2018 13:51 EST 01/05/2018 13:51 MD JAYLENE VALDEZ Final Surgical Pathology ReportDIAGNOSIS:SIGMOID COLON, SEGMENTAL RESECTION -- DIVERTICULOSIS.COMMENT:[facility] - A# [id number] INFORMATION:SIGMOID DIVERTICULOSISSPECIMEN:A COLON, RES, XTU - SIGMOID COLONGROSS DESCRIPTION:_Received in formalin labeled with the patient's name is a 25 cm in length segment of colon with a moderate amount of attached pericolonic fat. The serosa is pink and smooth. Opening shows mucosa is yellow-pink and glistening with the usual intestinal folds. There is an area of black tattooing 7 cm from the closest colonic margin. Sectioning shows no diverticula or other discrete lesions. The bowel wall averages 0.4 cm in thickness. RS -8Dictated by PHILLIP PRIEST ([facility])MICROSCOPIC DESCRIPTION:Slides reviewed.Electronically Signed byPathology Report verified by [facility] HospitalElectronically signed by JAYLENE SHELLEY MDSign out Date: 01/09/2018 09:07Performing Lab: [address] Comment: Performed By: #### SPFR #### [place] [address] final surgical pathology report on 2017-11-06 Final Surgical . Pathology ReportsAccession: Kayleigh resendez 11-06-2017 [facility] Pathology Report Collected Date/Time: Received [facility] ([place]) Date/Time: (02755) Pathologist:[id number] 11/02/2017 14:30 EST 11/03/2017 14:30 MD JAYLENE VALDEZ Final Surgical Pathology ReportDIAGNOSIS:A) DESCENDING COLON, POLYPECTOMY SPECIMEN -- TUBULAR ADENOMA.B) SIGMOID COLON, POLYPECTOMY -- TUBULAR ADENOMA.COMMENT:[facility] - A# [id number] INFORMATION:COLON CANCER SCREENINGSPECIMEN:A POLYP, COLORECT - DESCENDING COLON POLYPB POLYP, COLORECT - SIGMOID COLONGROSS DESCRIPTION:_A. Received in formalin labeled A are 3 rogel glistening soft tissues ranging from 0.3-0.4 cm, and a moderate amount of pale green debris. A S -1B. Received in formalin labeled B are 2 rogel glistening soft tissues, 0.2 and 0.4 cm in greatest dimension. A S -1Dictated by PHILLIP PRIEST ([facility])MICROSCOPIC DESCRIPTION:A&B) Slides reviewed.Electronically Signed byPathology Report verified by [facility] HospitalElectronically signed by JAYLENE SHLELEY MDSign out Date: 11/06/2017 17:57Performing Lab: [address] Comment: Performed By: #### SPFR #### [place] [address] Vital Signs Vital Sign Description Value / Unit Date Location The following section is limited to 5 en tries per type and includes entries from the following time range: 20200402 - 20200422 0. NEGATED: Highlighted 28.72 kg/m2 05-19-2020 - 05-19-[address] [facility] rowBMI (Body Mass Index) [facility] [place] [facility] ic (00701) NEGATED: Highlighted 28.72 kg/m2 04-02-2020 - 04-02-2020 [facility] rowBMI (Body Mass Index) [facility] [place] [facility] ic (22592) NEGATED: Highlighted 72 kg 05-19-2020 - 05-19-2020 [facility] rowBody weight [facility] ic (87586) NEGATED: Highlighted 72.12 kg 05-19-2019 - 05-19-2020 [facility] rowBody weight [facility] (88860) NEGATED: Highlighted 72.12 kg 04-02-2020 - 04-02-2020 [facility] rowBody weight [facility] (24511) NEGATED: Highlighted 72 kg 04-02-2020 - 04-02-2020 [facility] rowBody weight [facility] ic (62881) NEGATED: Highlighted 2+ 04-02-2020 - 04-02-2020 [facility] rowHeart rate [facility] ic (75199) NEGATED: Highlighted 159 cm 05-19-2020 - 05-19-2020 [facility] rowHeight [facility] ic (99359) NEGATED: Highlighted 158.75 cm 05-19-2020 - 05-19-2020 [facility] rowHeight [facility] ic (98240) NEGATED: Highlighted 158.75 cm 04-02-2020 - 04-02-2020 [facility] rowHeight [facility] ic (18477) NEGATED: Highlighted 159 cm 04-02-2020 - 04-02-2020 [facility] rowHeight [facility] ic (64397) Encounters Date Type Reason Provider Location 09-24-2019 - Emergency GOVIND fowler 09-24-2019 department patient C WINKLER [facility] visit JUAN Baker ([id number]) PETERSON MANLEY UNKNOWN PROVIDER UNKNOWN PROVIDER UNKNOWN PROVIDER 06-15-2020 - Patient encounter Nausea STEPHEN Aguirre holly 06-15-2020 procedure [facility] STEPHEN MANLEY (78456) STEPHEN MANLEY UNKNOWN PROVIDER UNKNOWN PROVIDER UNKNOWN PROVIDER 05-19-2020 - Patient encounter [facility] 05-19-2020 procedure [facility]ELTY [facility] [place] (46775) 04-02-2020 - Patient encounter Nicholas Jur[facility] 04-02-2020 procedure [facility] [place] (20892) 09-02-2019 - Patient encounter Unspecified injury STEPHEN Saeederene 09-02-2019 procedure of right foot, STEPHEN [facility] initial encounter STEPHEN MANLEY (61790) STEPHEN MANLEY UNKNOWN PROVIDER UNKNOWN PROVIDER UNKNOWN PROVIDER 07-31-2019 - Patient encounter STEPHEN Aguirre holly 08-01-2019 procedure STEPHEN [facility] STEPHEN MANLEY (29434) STEPHEN MANLEY UNKNOWN PROVIDER UNKNOWN PROVIDER UNKNOWN PROVIDER 07-01-2019 - Patient encounter STEPHEN Aguirre holly 07-02-2019 procedure STEPHEN [facility] STEPHEN MANLEY (50400) STEPHEN MANLEY UNKNOWN PROVIDER UNKNOWN PROVIDER UNKNOWN PROVIDER Procedures Procedure Name Date Provider Location NEGATED: Highlighted 05-19-2020 [facility] rowDocumentation of current 05-19-2020 [facility] - medications [facility] (26579) Blood pressure screening not 05-19-2020 - [facility] performed - reason not given 05-19-2020 [facility] Ort [facility]edi Center - [facility] ic (83528) BMI documented as above 05-19-2020 - [facility] normal parameters - 05-19-2020 [facility]opaedic Center - follow-up documented [facility] (94768) Documentation of current 05-19-2020 - [facility] medications 05-19-2020 [facility] - [facility] ic (96211) Pain assessment not 05-19-2020 - [facility] Da[facility] documented - reason not 05-19-2020 [facility] Orthopae dic Center - given [facility] (29458) Tobacco non-user 05-19-2020 - [facility]hma Da[facility] 05-19-2020 [facility] Cent [facility] - [facility] ic (43185) NEGATED: Highlighted 04-02-2020 - [facility] rowDocumentation of current 04-02-2020 Orth opaedic Center - medications [facility] ic (66914) BASIC LUMBAR SUPPORT (BREG) 04-02-2020 - Nicholas Hernandez [facility] 04-02-2020 Orthopaedic [facility] [place] Clin ic (82086) Blood pressure screening not 04-02-2020 - Nicholas Hernandez [facility] performed - reason not given 04-02-2020 Ort hopaedic [place] [facility] ic (02018) BMI documented as above 04-02-2020 - Nicholas Hernandez [facility] normal parameters - 04-02-2020 [facility] - follow-up documented [facility] (42843) Documentation of current 04-02-2020 - Nicholas [facility] medications 04-02-2020 Orthopaedic [facility] [place] Clin ic (90099) Pain assessment documented 04-02-2020 - Nicholas Hernandez MD [facility] as positive - follow-up 04-02-2020 [facility] Center - documented [facility] ic (71315) Tobacco non-user 04-02-2020 - Nicholas Hernandez [facility] 04-02-2020 Orthopaedic [facility] [place] ic (15015) Plan of Treatment Plan Description Date Location Appointment Appointment 05-19-2020 - [facility] 05-19-2020 Orthopaedic [facility] [place] ic (89841) Appointment Appointment 04-02-2020 - [facility] 04-02-2020 [facility]opaedic [facility] [place] Clin ic (32424) XR LUMBAR 4VWS FLEX/EX XR LUMBAR 4VWS FLEX/EX 04-02-2020 - [facility] 04-02-2020 Orthopaedic [facility] [place] Clin ic (75650) Payers Payer Name Policy Number Location [facility] OUT[facility]IENT [id number] [facility] (68500) [id number] [facility] (13092) [id number] [facility] (53041) [id number] [facility] (46352) [id number] [facility] (53293) [id number] [facility] (73179) The following information is from the original human readable contentNo Payer Records FoundNo Payer Records FoundNo Payer Records FoundNo Payer Records FoundNo Payer Records Found Social History Type Social History Date Location Description NEGATED: Highlighted Alcohol use 04-02-2020 - [facility] rowAlcohol use 04-02-[address] [facility] (94434) NEGATED: Highlighted Details of drug misuse 04-02-2020 - [facility] rowDetails of drug behavior 04-02-2020 Orthopaedic C enter - misuse behavior [facility] ic (56443) NEGATED: Highlighted Never smoker 04-02-2020 - [facility] rowAssertion 04-02-[address] [facility] (73543) Assertion Unknown if ever smoked 05-19-2020 - [facility] 05-19-[address] [facility] (06287) The following information is from the original human readable contentNo Social History Records FoundNo Social History Records FoundNo Social History Records FoundNo Social History Records FoundNo Social History Records FoundNo Social History Records FoundNo Social History Records Found Summary Purpose Family History No Family History Records FoundThere may be information available, but it has not been provided by the sender.There may be information available, but it has not been provided by the sender.No Family History Records FoundNo Family History Records FoundNo Family History Records Found Advance Directives No Advanced Directives Records FoundThere may be information available, but it has not been provided by the sender.There may be information available, but it has not been provided by the sender. No Advanced Directives Records FoundNo Advanced Directives Records FoundNo Advanced Directives Records Found Chief Complaint Chief Complaint Description Start Date lower back pain Preliminary chief complaint data, not yet signed by the author as of Chief Complaint Description Start Date lower back post Microdiscectomy L5-S1 left on 04/06/2020 Preliminary chief complaint data, not yet signed by the author as of Instructions Instruction Description Start Date CompletedPatient advised to follow-up with [facility] for BMI management. Instruction Description Start Date CompletedPatient advised to follow-up with Primary Car [facility] Physician for BMI management. Assessments There may be information available, but it has not been provided by the sender.There may be information available, but it has not been provided by the sender. Review of System There may be information available, but it has not been provided by the sender.There may be information available, but it has not been provided by the sender. History of Present Illness There may be information available, but it has not been provided by the sender.There may be information available, but it has not been provided by the sender. Additional Source Comments FOR RECORDS PERTAINING TO PATIENTS WHO ARE OR HAVE BEEN ENROLLED IN A CHEMICAL DEPENDENCY/SUBSTANCE ABUSE PROGRAM, SOME INFORMATION MAY BE OMITTED. This clinical summary was aggregated from multiple sources. Caution should be exercised in using it in the provision of clinical care. This summary normalizes information from multiple sources, and as a consequence, information in this document may materially changethe coding, format and clinical context of patient data. In addition, data may be omittedin some cases. CLINICAL DECISIONS SHOULD BE BASED ON THE PRIMARY CLINICAL RECORDS. [facility] provides no warranty or guarantee of the accuracy or completeness of information in this document. UNRECOGNIZED CONTENT PROVIDED BELOW FOR UNRECOGNIZED SECTION INFORMATION SOURCE DATE CREATED AUTHOR AUTHOR'S ORGANIZATIO N 05/11/2018 [facility] ([place]) DATE CREATED AUTHOR AUTHOR'S ORGANIZATIO N 06/18/2020 [facility] DATE CREATED AUTHOR AUTHOR'S ORGANIZATIO N 06/20/2020 [facility] DATE CREATED AUTHOR AUTHOR'S ORGANIZATIO N 08/11/2020 [facility] UNRECOGNIZED CONTENT PROVIDED BELOW FOR UNRECOGNIZED SECTION Reason for Visit Reason For Visit Description Start Date New - 1st visit with practice Preliminary reason for visit data, not yet signed by the author as of lower back pain Reason For Visit Description Start Date Postop - 1st visit Preliminary reason for visit data, not yet signed by the author as of lower back post Microdiscectomy L5-S1 left on 04/06/2020
--- OUTSIDE RECORDS SUMMARY | 2020-09-01 08:03 | XMS RPT_ITS | CCD ---
:1955 External Reference #:[id number] Author Organization [facility] Care Team Providers Name Role Phone Adrien [...] (Qualifier Value) Penicillin hives Critical, 04-02-2020 - [facility] Critical [facility] [place] (88931) Penicillin Moderate [facility] Repository (Qualifier Value) Penicillins Moderate [facility] Mod[facility]) Repository (Qualifier Value) Piroxicam Moderate Romain [facility] ([facility] Mod[facility]) Repository (Qualifier Value) Medications Medication Name Sig Date Prescriber Location Acetaminophen / PERCOCET 5-325 MG TABS Cr ystal [facility] oxyCODONE one tablet every 6 0 Orthopaed ic hours as needed [facility] OXYCODONE-ACETAMINOPHEN (448 64) [phone] Nicholas Hernandez MD amLODIPine AMLODIPINE BESYLATE 5 [facility] MG TABS one tablet 0 Orthopa[facility] ic daily Center - No rth AMLODIPINE BESYLATE [facility] inic [phone] Nicholas Jurado (21623 ) Mary PILLAI Losartan LOSARTAN POTASSIUM 100 [facility] MG TABS one tablet 0 Orthopaed ic daily Center - No rth LOSARTAN POTASSIUM [facility] Cli vee [phone] Nicholas Jurado (85737 ) Mary PILLAI methylPREDNISolone MEDROL 4 MG TBPK take [facility] as directed 0 Mary PILLAI Ortho paedic METHYLPREDNISOLONE [facility] [phone] [facility] Mary PILLAI (79485) Omeprazole OMEPRAZOLE 40 MG CPDR [facility] one capsule daily 0 Orthopaedi c OMEPRAZOLE [facility] [phone] [facility] Mary PILLAI (50721) Problems Active Problems Category Problem Name Status Date Location Nausea and vomiting Nausea Active 06-15-2020 [facility]75253[facility] Other aftercare Surgical follow-up Active 05-19-2020 - [facility] [place] (72185) Spondylosis; Intervertebral disc Active 04-02-2020 - [facility] intervertebral disc disorders with [facility] disorders; other back radiculopathy, lumbar - [facility] problems region Clinic (57224) Past or Other Problems Category Problem Name Status Date Location Other injuries and Unspecified injury Completed 09-02-2019 - Alberto Singletary conditions due to of right foot, [facility] external causes initial encounter (67509) Unclassified Problem [facility] [place] (22420) Results Result Name Value Range Unit Interpretation Flag Date Location tsh on 2020-08-11 TSH Qn 1.32 0.40-4.50 mIU/L Normal 08-11-2020 [facility] (17553) Comment: Performed By: #### 56408, 37 2, 899 #### [facility], [address] [place] [address] Dielectric Press Operator: Indio solano MD comprehensive metabolic panel on 2020-08-11 Albumin [Mass/Vol] 4.2 3.6-5.1 g/dL Normal 08-11-2020 [facility] (30525) Comment: Performed By: #### 22585, 37 2, 899 #### [facility], [address] [place] [address] [employer]lectric Press Operator: Indio solano MD Albumin/Globulin [Mass 1.6 1.0-2.5 (calc) Normal 020 [facility] ratio] (04698) Comment: Performed By: #### 42280, 37 2, 899 #### [facility], [address] [place] [address] [employer]lectric Press Operator: Indio solano MD ALP [Catalytic 116 37-153 U/L Normal 08-11-2020 [facility] (48421) activity/Vol] Comment: Performed By: #### 48030, 37 2, 899 #### [facility], [address] [place] [address] Dielectric Press Operator: Indio solano MD ALT [Catalytic activity/Vol] 14 6-29 U/L Normal 0 08-11-2020 [facility] (78209) Comment: Performed By: #### 58255, 37 2, 899 #### [facility], [address] [place] [address] Dielectric Press Operator: Indio solano MD AST [Catalytic activity/Vol] 14 10-35 U/L Normal 0 08-11-2020 [facility] (16506) Comment: Performed By: #### 80287, 37 2, 899 #### [facility], [address] [place] [address] Dielectric Press Operator: Indio solano MD Bilirubin [Mass/Vol] 0.5 0.2-1.2 mg/dL Normal 0 [facility] (87669) Comment: Performed By: #### 66137, 2, 899 #### [facility], [address] [place] [address] Dielectric Press Operator: Indio solano MD Calcium [Mass/Vol] 9.6 8.6-10.4 mg/dL Normal 08-11-2020 [facility] (12410) Comment: Performed By: #### 07909, 2, 899 #### [facility], [address] [place] [address] Dielectric Press Operator: Indio solano MD Chloride [Moles/Vol] 100 98-110 mmol/L Normal 0 [facility] (18683) Comment: Performed By: #### 39829, 2, 899 #### [facility], [address] [place] [address] Dielectric Press Operator: Indio solano MD CO2 [Moles/Vol] 21 20-32 mmol/L Normal 08-11-[address] [facility] (24190) Comment: Performed By: #### 65437, 2, 899 #### [facility] [place] [address] [employer]lectric Press Operator: Indio solano MD Creatinine [Mass/Vol] 0.87 0.50-0.99 mg/dL Normal 08-11-20 20 [facility] (62872) Comment: Result Comment: For patients >49 years of age, the reference limit for Creatinine is approximat paulo 13% higher for people identified as -Americ an. Performed By: #### 87643, 2, 899 #### [facility], [address] [place] [address] Dielectric Press Operator: Indio solano MD eGFR NON-AFR. 70 > OR = 60 mL/min/1.73m2 Normal 08-11-2020 [facility] MICRONESIAN (63122) Comment: Performed By: #### 09357, 37 2, 899 #### [facility], [address] [place] [address] Dielectric Press Operator: Indio solano MD GFR/1.73 sq M 82 > OR = 60 mL/min/1.73m2 Normal 08-11-2020 [facility] predicted among (000 00) blacks MDRD (S/P/Bld) [Vol rate/Area] Comment: Performed By: #### 80938, 37 2, 899 #### [facility], [address] [place] [address] Dielectric Press Operator: Indio solano MD Globulin (S) 2.6 1.9-3.7 g/dL (calc) Normal 08-11-2020 [facility] [Mass/Vol] (09170) Comment: Performed By: #### 23371, 37 2, 899 #### [facility], [address] [place] [address] Dielectric Press Operator: Indio solano MD Glucose [Mass/Vol] 353 65-99 mg/dL High 08-11-2020 [facility] (49045) Comment: Result Comment: Fasting reference interval For someone without known di abetes, a glucose value >125 mg/dL indicates t hat they may have diabetes and this should be confirmed with a follow-up test. Performed By: #### 53021, 37 2, 899 #### [facility], [address] [place] [address] Dielectric Press Operator: Indio solano MD Potassium [Moles/Vol] 4.4 3.5-5.3 mmol/L Normal 08-11-20 20 [facility] (03310) Comment: Performed By: #### 19720, 37 2, 899 #### [facility], [address] [place] [address] Dielectric Press Operator: Indio solano MD Protein [Mass/Vol] 6.8 6.1-8.1 g/dL Normal 08-11-2020 [facility] (54378) Comment: Performed By: ###Lucas 01068, 37 2, 899 #### [facility], [address] [place] [address] Dielectric Press Operator: Indio solano MD Sodium [Moles/Vol] 133 135-146 mmol/L Low 08-11-2020 [facility] (34795) Comment: Performed By: #### 15507, 37 2, 899 #### [facility]-[address], [address] [place] [address] Dielectric Press Operator: Indio solano MD Urea nitrogen [Mass/Vol] 21 7-25 mg/dL Normal 08-11 [facility] (27064) Comment: Performed By: #### 30829, 37 2, 899 #### [facility], [address] [place] [address] Dielectric Press Operator: Indio solano MD Urea nitrogen/Creatinine NOT APPLICABLE 05-11 Normal 08-11-2020 [facility] [Mass ratio] (38427) Comment: Performed By: #### 61232, 37 2, 899 #### [facility], [address] [place] [address] Dielectric Press Operator: Indio solano MD c-peptide on 2019-0 08-11 C-PEPTIDE 2.48 0.80-3.85 ng/mL Normal 08-11-2020 [facility] (75403) Comment: Performed By: #### 05195, 37 2, 899 #### [facility], [address] [place] [address] Dielectric Press Operator: Indio solano MD coronavirus pcr [ccl] on 2020-06-18 COVID 19 Result MANAGER LIGHTING Negative CORNEG Normal 06-18-2020 [facility] ( 27433) Comment: Result Comment: Negative for COVID19 (SARS CoV2) by PCR. This test was developed and its performance characteristics determined by [facility] [place]. This test has bee n authorized by FDA under an Emergency Use Authorization (EUA). This test has been validated in accordance with the FDA's Guidance Document Policy for Diagnostics Test ing in Laboratories Certified to Perform High Complexity Testing under CLI A prior to Emergency use Authorization for Coronavirus Disease 2019 dur ing the Public Health Emergency issued on January 18, 2020. [facility] [address] [place] [address] Teddy Dick III, M.D. [id number] Performed By: #### [id number] ## ## [facility],[address] [place] [address] 54990 COVID 19 Source MANAGER LIGHTING Nasopharyngeal Swab Normal 0 06-18-2020 [facility] ( 98874) Comment: Performed By: #### 332010 ## ## [facility],[address] [place] [address] 91567 coronavirus 2019 on 2020-06-18 COVID 19 Result MANAGER LIGHTING Negative for COVID19 Normal 06-18-2020 [facility] (SARS CoV2) by PCR. Reference [facility] (03558) Comment: Result Comment: Negative for This test was developed and its performance characteristics determined by [facility] [place]. This test has been authorized by FDA [...] developed and its performance characteristics determined by [facility] [place]. This test has been authorized by FDA [...] developed and its performance characteristics determined by [facility] [place]. This test has been authorized by FDA [...] coronavirus 2019 on 2020-06-17 COVID 19 Source MANAGER LIGHTING MANAGER LIGHTING Normal 06-17-2020 [facility] (18652) clinical summary: hmspatientid on 2020-05-19 NOP 05-19-2020 - 05-19-2020 [facility] (52499) office visit: new - 1st visit with pract maria guadalupe, rm: 1 on 2020-04-02 NEGATED: Highlighted of the lumbar on - [facility] rowMRI (magnetic 03/28/2020 at 0 [facility] [place] - resonance imaging) [facility] history imported via (77856) nucleus NEGATED: Highlighted never smoker 2019 - [facility] rowTobacco smoking 04-02-2020 [facility] (27198[facility] clinical summary: scanned history summar y on 2020-04-02 brother(s) of Unknown 04-02-2020 - [facility] patient alive or 04-02-2020 Or thopaedic Center - [facility] ic (98556) Data entered by 5 days per week 04-02-20 20 - [facility] patient exercise 04-02-2020 Or thopaedic frequency Center - [facility] ic (55090) Data entered by walkingother 04-02-2020 - [facility] patient exercise 04-02-2020 Or thopaedic type Center - [facility] ic (01524) data entered by No 04-02-2020 - C [facility] patient, alcohol 04-02-2020 Or thopaedic (ethanol or ETOH) Ce nter - [place] use [facility] Clin ic (38523) Data entered by Penicillin 04-02-2020 - [facility] patient, allergy 04-02-2020 Or thopaedic list Center - [facility] ic (36854) data entered by No 04-02-2020 - C [facility] patient, drug (of 04-02-2020 O rthopaedic abuse) use [facility] ic (02838) data entered by Retired 04-02-2020 - C [facility] patient, Employer 04-02-2020 O rthopaedic Name Center - [facility] ic (54938) data entered by No 04-02-2020 - [facility] patient, exercise 04-02-2020 O rthopaedic history Center - N orth [facility] Clin ic (11535) data entered by CancerDiabetes - non-insulin 04-02-2020 [facility] patient, father's dependentHigh blood pressure 04-02-2020 Orthopaedic medical history Cent er [facility] Clin ic (50252) Data entered by Abdominal 04-02-2020 - [facility] patient, history of SurgeryAppendectomyHand 04-02-2020 Orthopaedic past surgeries surgeryCarpal C enter - [place] [facility] surgery other (47112 ) data entered by High blood pressure 03-20 [facility] patient, mother's 04-02-2020 O rthopaedic medical history Cent er [facility] Clin ic (35998) data entered by High blood 04-02-2020 [facility] patient, past pressureObstructive sleep 04-02-2020 Orthopaedic medical history apneaStomach C [facility] ulcersHypertension [facility] (46254) data entered by never smoker 04-02-2020 [facility] patient, social 04-02-2020 Ort hopaedic history, current [facility] [place] smoker [facility] Clin ic (05206) data entered by 04-02-2020 [facility] patient, social 04-02-2020 Ort hopaedic history, marital [facility]preet [facility] [place] status [facility] Clin ic (60015) father of patient Alive 04-02-2020 [facility] is alive or 04-02-2020 Orthopa edic Center - [facility] ic (63115) Housing Type: House 04-02-2020 - [facility] stal [facility] apartment, house, 04-02-2020 O rthopaedic long-term, trailer, Ce nt - [facility] Clin ic (18704) housing unit size 1 Floor 04-02-2020 - [facility] (asthma 04-02-2020 Orthopaed ic environmental [facility] history, housing) [facility] Clinic (from single family (03745) to don't know) medical history of Diabetes - non-insulin 04-02-2020 [facility] patient's sister dependent 04-02-2020 Or thopaedic Center - [facility] Clin ic (22395) mother of patient Alive 04-02-2020 - [facility] is alive or 04-02-2020 Orthopa edic Center - N [facility] Clin ic (13453) clinical summary: hmspatientid on 2020-04-02 NOP 04-02-2020 - 04-02-2020 [facility] Orthopaedic Center - N [facility] (08920) emergency report on 2019-09-27 EMERGENCY REPORT [facility] Normal 09-27 [facility] EMERGENCY ROOM REPORT (68320) NAME ACCOUNT SEX AGE ADMIT DISCHARGE PT MED. RECORD# NUMBER DATE DATE TYPE CASIE [id number] F 64 09/24/19 09/24/19 3 LIANNE Bacon [address] ROOM: ER DATE OF : 1955 DICTATING [...] Govind Winkler MD 09/24/19 18:58 JOB #: [id number] Transcribed By: nadege 09/25/19 12:38 Electronically signed by: JUAN Winkler M.D. 09/27/19 07:06 Page 2 of 2 LIANNE JASON Emergency Room Report troponin on 2019-09 Troponin I.cardiac <0.01 0.00 - 0.05 ng/mL Normal [address] [facility] [[facility] (75124) Comment: Result Comment: Elevated tro ponin (above [...] as heterophile antibodi es). Performed By: #### [id number] ## ## [facility],[address] [place], [place] [address] prothrombin time and inr on 2019-09-24 INR Coag (Bld) [Relative time] Normal 09-24-2019 [facility] ( 42276) Comment: Result Comment: PROTHROMBIN TIME AND INR Performed By: #### [id number] ## ## [facility],[address] [place], [place] [address] INR Coag (PPP) [Relative 1.0 0.8 - 1.2 {INR} Normal 09-24 [facility] ( 62281) Comment: Result Comment: THE HEMOS IL THROMBOPLASTIN [...] MECHANICAL HEART V MONTIEL Performed By: #### 100256 ## ## [facility],[address] [place] [address] 23844 PT-COUMADIN 11.6 9.3 - 14.1 sec Normal 09-24-2019 [facility] (07758) Comment: Performed By: #### [id number] ## ## [facility],[address] [place], [place] [id number] ct brain w/o contrast on 2019-09-24 CT BRAIN W/O [facility] Normal 9 [facility] [address] [place], [place] [address] (68855) Patient: LIANNE JASON Phone#: : 1955 Age: 64 Gender: F Pt. Type: ER Account: [id number] Location: 052 Ordering: GOVIND WINKLER Exam Date: 09/24/2019/17:29 Family Phys: STEPHEN MANLEY Charge Code: 454317 Physician: [place] Order #: [id number] DLP Dose#: 57.5 mGy PROCEDURE: CT BRAIN WITHOUT CONTRAST COMPARISON: [facility], CT, BRAIN W/O CON, 07/15/2015, 4:43. INDICATIONS: [...] not be initially evid ent on CT. [facility] [address] [place], [place] [address] Patient: LIANNE JASON Phone#: : 1955 Age: 64 Gender: F Pt. Type: ER Account: [id number] Location: [facility] Ordering: GOVIND WINKLER Exam Date: 09/24/2019/17:29 Family Phys: STEPHEN MANLEY Charge Code: 375055 Physician: [place] Order #: [id number] DLP Dose#: 57.5 mGy Dictated by: Digna Abdullahi MD on 09/24/2019 at 17:53 Approved by: Digna Abdullahi MD on 09/24/2019 at 17:53 cmp with egfr on 08-10-05 Age - Reported 64 years Normal 09-24-2019 [facility] (58653) Comment: Performed By: #### [id number] ## ## [facility],[address] [place] [address] 16516 Albumin [Mass/Vol] 4.5 3.4 - 4.8 g/dL Normal 09-24-2019 [facility] ( 08819) Comment: Performed By: #### [id number] ## ## [facility],[address] [place] [address] 02420 Albumin/Globulin [Mass 1.7 0.9 - 1.6 {ratio} High [address] [facility] ratio] [facility] (73528) Comment: Performed By: #### [id number] ## ## [facility],[address] [place] [address] 30773 ALK PHOS 82 38 - 126 U/L Normal 09-24-2019 [facility] (14169) Comment: Performed By: #### [id number] ## ## [facility],[address] [place] [address] 52542 ALT/SGPT 20 8 - 35 U/L Normal 09-24-2019 [facility] (77733) Comment: Performed By: #### [id number] ## ## [facility],[address] [place] [address] 02373 Anion gap [Moles/Vol] 14 10 - 20 mmol/L Normal 09-24-20 19 [facility] ( 95318) Comment: Performed By: #### [id number] ## ## [facility],[address] [place] [address] 41130 AST/SGOT 16 13 - 39 U/L Normal 09-24-2019 [facility] (05781) Comment: Performed By: #### [id number] ## ## [facility],[address] [place] [address] 12511 B/C RATIO 21 0 - 30 ratio Normal 09-24-2019 [facility] (80323) Comment: Performed By: #### [id number] ## ## [facility],[address] [place] [address] 92383 Bilirubin [Mass/Vol] 0.3 0.0 - 1.5 mg/dl Normal 9 [facility] ( 10370) Comment: Performed By: #### [id number] ## ## [facility],[address] [place] [address] 31926 Calcium [Mass/Vol] 9.5 8.6 - 10.2 mg/dl Normal 09-24-2019 [facility] ( 99965) Comment: Performed By: #### [id number] ## ## [facility],[address] [place] [address] 69311 Chloride [Moles/Vol] 103 98 - 107 mmol/L Normal 9 [facility] ( 44010) Comment: Performed By: #### [id number] ## ## [facility],[address] [place] [address] 58372 CO2 [Moles/Vol] 26.8 21.0 - 31.0 mmol/L Normal 09-24-2019 [facility] ( 75572) Comment: Performed By: #### [id number] ## ## [facility],[address] [place] [address] 02711 Creatinine [Mass/Vol] 1.0 0.6 - 1.2 mg/dl Normal 09-24-20 19 [facility] ( 85618) Comment: Performed By: #### [id number] ## ## [facility],[address] [place] [address] 53361 GFR/1.73 sq M >60 60 - 999 mL/min/{1.73_m2} Normal [address] [facility] predicted [facility] non-blacks MDRD (000 00) (S/P/Bld) [Vol rate/Area] [...] OF AGE AND OLDER. Performed By: #### 706392 ## ## [facility],[address] [place] [address] 38546 GFR/1.73 sq M predicted 56 60 - 999 ML/MINUTE Low 2018 [facility] among non-blacks MDRD Hospital (02487) (S/P/Bld) [Vol rate/Area] Comment: Performed By: #### [id number] ## ## [facility],[address] [place] [address] 18428 GFR/1.73 sq M predicted among Normal 09-24-2019 [facility] non-blacks MDRD (S/P/Bld) [Vol Hospital (19394) rate/Area] Comment: Result Comment: COMPREHENSIV E METABOLIC PANEL Performed By: #### 350234 ## ## [facility],[address] [place] [address] 02895 Globulin (S) [Mass/Vol] 2.7 1.5 - 3.8 G/DL Normal 2018 [facility] ( 35399) Comment: Performed By: #### [id number] ## ## [facility],[address] [facility] [address] Glucose [Mass/Vol] 116 74 - 106 mg/dl High 09-24-2019 [facility] (12217) Comment: Performed By: #### [id number] ## ## [facility],[address] [place] [address] 57678 Potassium [Moles/Vol] 3.7 3.5 - 5.1 mmol/L Normal 09-24-20 19 [facility] ( 38551) Comment: Performed By: #### [id number] ## ## [facility],[address] [place] [address] 67508 Protein [Mass/Vol] 7.2 6.4 - 8.3 g/dl Normal 09-24-2019 [facility] ( 62425) Comment: Performed By: #### [id number] ## ## [facility],[address] [place] [address] 23845 Sodium [Moles/Vol] 140 136 - 145 mmol/l Normal 09-24-2019 [facility] ( 30789) Comment: Performed By: #### [id number] ## ## [facility],[address] [place] [address] 58955 Urea nitrogen [Mass/Vol] 21 6 - 20 mg/dl High 09-24 [facility] ( 67105) Comment: Performed By: #### [id number] ## ## [facility],[address] [place] [address] 02889 cbc + diff on 09-24 Other RARE LARGE PLATELETS Normal 9 [facility] (03836) Comment: Performed By: #### [id number] ## ## [facility],[address] [facility] 12394 Basophils (Bld) 0.10 0.00 - 0.10 x10EE3/UL Normal 09-24-2019 [facility] [#/Vol] [facility] (19108) Comment: Performed By: #### [id number] ## ## [facility],[address] [place] [address] 14270 Basophils/100 WBC (Bld) 0.9 0.0 - 2.0 % Normal 2018 [facility] ( 04929) Comment: Performed By: #### [id number] ## ## [facility],[address] [place] [address] 19780 CBC + DIFF Normal 09-24-2019 [facility] [place] (41935) Comment: Result Comment: CBC-COMPLETE BLOOD COUNT Performed By: #### [id number] ## ## [facility],[address] [place] [address] 05930 Eosinophils (Bld) 0.10 0.00 - 0.50 x10EE3/UL Normal 09-24-[address] [facility] [#/Vol] [facility] (52907) Comment: Performed By: #### [id number] ## ## [facility] [facility],[address] [place] [address] 54153 Eosinophils/100 WBC (Bld) 2.0 0.0 - 7.0 % Normal [facility] ( 93505) Comment: Performed By: #### [id number] ## ## [facility],[address] [place] [address] 47668 Erythrocyte distribution 14.7 12.0 - 15.6 % Normal [facility] width (RBC) [Ratio] [facility] (02323) Comment: Performed By: #### [id number] ## ## [facility],[address] [place] [address] 71422 Hematocrit (Bld) [Volume 38.6 34.0 - 46.0 % Normal [facility] ( 34792) Comment: Performed By: #### [id number] ## ## [facility],[address] [place], [place] [id number] Hemoglobin (Bld) 13.2 12.0 - 16.0 g/dl Normal 09-24-[address] [facility] [Mass/Vol] [facility] (49193) Comment: Performed By: #### [id number] ## ## [facility],[address] [place] [address] Lymphocytes (Bld) 1.50 0.80 - 2.80 x10EE3/UL Normal 09-24-[address] [facility] [#/Vol] [facility] (76795) Comment: Performed By: #### [id number] ## ## [place] [id number] Lymphocytes/100 WBC (Bld) 19.5 20.0 - 45.0 % Low [facility] ( 23056) Comment: Performed By: #### [id number] ## ## [place] [id number] MANUAL DIFF REVIEWED Normal 09-24-2019 [facility] (38447) Comment: Performed By: #### [id number] ## ## [place] [id number] MCH (RBC) [Entitic mass] 27 27 - 33 pg Normal 09-24 [facility] ( 20095) Comment: Performed By: #### [id number] ## ## [place] [id number] MCHC (RBC) [Mass/Vol] 34 32 - 36 X10 3 Normal 09-24-20 19 [facility] ( 52787) Comment: Performed By: #### [id number] ## ## [place] [id number] MCV (RBC) [Entitic vol] 80 80 - 99 fl Normal 2018 [facility] ( 98726) Comment: Performed By: #### [id number] ## ## [facility],[address] [place] [address] 43198 Monocytes (Bld) 0.70 0.20 - 1.00 x10EE3/UL Normal 09-24-2019 [facility] [#/Vol] [facility] (94515) Comment: Performed By: #### [id number] ## ## [facility],[address] [place] [address] 36209 MONOS % 9.1 0.0 - 10.0 % Normal 09-24-2019 [facility] (59891) Comment: Performed By: #### [id number] ## ## [facility],[address] [place] [address] 40683 Morphology Sony (Bld) SEE BELOW Normal [facility] [Interp] [facility] ( 92952) Comment: Performed By: #### [id number] ## ## [facility],[address] [place] [address] 66828 Neutrophils (Bld) 5.10 1.50 - 7.10 x10EE3/UL Normal 09-24-[address] [facility] [#/Vol] [facility] (14673) Comment: Performed By: #### [id number] ## ## [facility],[address] [place] [address] 66895 Neutrophils/100 WBC (Bld) 68.5 46.0 - 76.0 % Normal [facility] ( 49137) Comment: Performed By: #### [id number] ## ## [facility],[address] [place] [address] 44173 Platelet mean volume 10.6 6.6 - 10.5 fl High 09-24-20 19 [facility] (Bld) [Entitic vol] [facility] (18608) Comment: Result Comment: AUTOMATED DI FFERENTIAL Performed By: #### [id number] ## ## [facility],[address] [place] [address] 68955 Platelets (Bld) [#/Vol] NORMAL Normal 2018 [facility] (92117) Comment: Performed By: #### [id number] ## ## [facility],[address] [place] [address] 31516 Platelets (Bld) 205 150 - 450 x10EE3/UL Normal 09-24-2019 Alberto Singletary [#/Vol] [facility] (90711) Comment: Performed By: #### [id number] ## ## [facility],[address] [place] [address] 83522 RBC (Bld) [#/Vol] 4.85 4.10 - 5.30 x 10EE6/UL Normal 9 [facility] (99674) Comment: Performed By: #### [id number] ## ## [facility],[address] [place] [address] 73655 WBC (Bld) [#/Vol] 7.5 4.5 - 10.8 x 10EE3/UL Normal 09-24-2019 [facility] ( 54741) Comment: Performed By: #### [id number] ## ## [facility],[address] [place], [place] [id number] c-reactive protein on 2019-09-24 CRP [Mass/Vol] 0.50 0.00 - 1.00 mg/dl Normal 09-24-2019 [facility] ( 23570) Comment: Performed By: #### [id number] ## ## [facility],[address] [place] [address] 85899 aptt on 2019-09-24 aPTT Coag (Bld) [Time] 28.1 25.4 - 38.4 sec Normal 09-24 [facility] ( 83315) Comment: Performed By: #### [id number] ## ## [facility],[address] [place] [address] 96791 foot complete rt on 2019-09-02 FOOT COMPLETE RT [facility] Normal 09-02 [facility] [address] [place] [address] ([id number]) Patient: LIANNE JASON Phone#: : [phone] Age: 64 Gender: F Pt. Type: Out Account: [id number] Location: 05 Ordering: STEPHEN MANLEY Exam Date: 09/02/2019/11:55 Family Phys: Charge Code: [id number] Physician: [place] Order #: [id number] DLP Dose#: PROCEDURE: X-RAY FOOT RT COMPLETE [...] Surgical . Pathology ReportsAccession: Kayleigh resendez 01-09-2018 [facility] Pathology Collected Date/Time: Received [facility] ([place]) Report Date/Time: (22552) Pathologist:[id number] 01/04/2018 13:51 EST 01/05/2018 13:51 MD JAYLENE VALDEZ Final Surgical Pathology ReportDIAGNOSIS:SIGMOID COLON, SEGMENTAL RESECTION -- DIVERTICULOSIS.COMMENT:[facility] - A# [id number] INFORMATION:SIGMOID DIVERTICULOSISSPECIMEN:A COLON, RES, XTU - SIGMOID [...] in thickness. RS -8Dictated by PHILLIP PRIEST ([facility])MICROSCOPIC DESCRIPTION:Slides reviewed.Electronically Signed byPathology Report verified by [facility] Hospital[facility]ronically signed by JAYLENE SHELLEY MDSign out Date: 01/09/2018 09:07Performing Lab: [address] Comment: Performed By: #### SPFR #### [place] [address] final surgical pathology report on 2017-11-06 Final Surgical . Pathology ReportsAccession: Kayleigh resendez 11-06-2017 [facility] Pathology Report Collected Date/Time: Received [facility] ([place]) Date/Time: (85261) Pathologist:[id number] 11/02/2017 14:30 EST 11/03/2017 14:30 MD JAYLENE VALDEZ Final Surgical Pathology ReportDIAGNOSIS:A) DESCENDING COLON, POLYPECTOMY SPECIMEN -- TUBULAR ADENOMA.B) SIGMOID COLON, POLYPECTOMY -- TUBULAR ADENOMA.COMMENT:[facility] - A# [id number] INFORMATION:COLON CANCER SCREENINGSPECIMEN:A POLYP, COLORECT - DESCENDING [...] dimension. A S -1Dictated by PHILLIP PRIEST ([facility])MICROSCOPIC DESCRIPTION:A&B) Slides reviewed.Electronically Signed byPathology Report verified by [facility] HospitalElectronically signed by JAYLENE SHELLEY MDSign out Date: 11/06/2017 17:57Performing Lab: [address] Comment: Performed By: #### SPFR #### [place] [address] Vital Signs Vital Sign Description Value / Unit Date Location The following section is limited to 5 en tries per type and includes entries from the following time range: 20200402 - 20200422 0. NEGATED: Highlighted 28.72 kg/m2 05-19-2020 - 05-19-2020 [facility] rowBMI (Body Mass Index) [facility] ic (70540) NEGATED: Highlighted 28.72 kg/m2 04-02-2020 - 04-02-2020 [facility] rowBMI (Body Mass Index) [facility] ic (57074) NEGATED: Highlighted 72 kg 05-19-2020 - 05-19-2020 [facility] rowBody weight [facility] (81433) NEGATED: Highlighted 72.12 kg 05-19-2019 - 05-19-2020 [facility] rowBody weight [facility] (27702) NEGATED: Highlighted 72.12 kg 04-02-2020 - 04-02-2020 [facility] rowBody weight [facility] (33191) NEGATED: Highlighted 72 kg 04-02-2020 - 04-02-2020 [facility] rowBody weight [facility] (91714) NEGATED: Highlighted 2+ 04-02-2020 - 04-02-2020 [facility] rowHeart rate [facility] (17720) NEGATED: Highlighted 159 cm 05-19-2020 - 05-19-2020 [facility] rowHeight [facility] (91357) NEGATED: Highlighted 158.75 cm 05-19-2020 - 05-19-2020 [facility] rowHeight [facility] ic (71094) NEGATED: Highlighted 158.75 cm 04-02-2020 - 04-02-2020 [facility] rowHeight [facility] ic (13385) NEGATED: Highlighted 159 cm 04-02-2020 - 04-02-2020 [facility] rowHeight [facility] ic (10021) Encounters Date Type Reason Provider Location 09-24-2019 - Emergency GOVIND fowler 09-24-2019 department patient C WINKLER [facility] visit JUAN Baker ([id number]) PETERSON MANLEY UNKNOWN PROVIDER UNKNOWN PROVIDER UNKNOWN PROVIDER 06-15-2020 - Patient encounter Nausea STEPHEN Aguirre holly 06-15-2020 procedure [facility] STEPHEN MANLEY (52302) STEPHEN MANLEY UNKNOWN PROVIDER UNKNOWN PROVIDER UNKNOWN PROVIDER 05-19-2020 - Patient encounter [facility] 05-19-2020 procedure INSTALLMENT LOAN [facility] (39551) 04-02-2020 - Patient encounter Nicholas Jur[facility] 04-02-2020 procedure [facility] (86589) 09-02-2019 - Patient encounter Unspecified injury STEPHEN Saeederene 09-02-2019 procedure of right foot, STEPHEN [facility] initial encounter STEPHEN MANLEY (49384) STEPHEN MANLEY UNKNOWN PROVIDER UNKNOWN PROVIDER UNKNOWN PROVIDER 07-31-2019 - Patient encounter STEPHEN Aguirre holly 08-01-2019 procedure STEPHEN [facility] STEPHEN MANLEY (25856) STEPHEN MANLEY UNKNOWN PROVIDER UNKNOWN PROVIDER UNKNOWN PROVIDER 07-01-2019 - Patient encounter STEPHEN Aguirre holly 07-02-2019 procedure STEPHEN [facility] STEPHEN MANLEY (92688) STEPHEN MANLEY UNKNOWN PROVIDER UNKNOWN PROVIDER UNKNOWN PROVIDER Procedures Procedure Name Date Provider Location NEGATED: Highlighted 05-19-2020 [facility] rowDocumentation of current 05-19-2020 [facility] ic (94379) Blood pressure screening not 05-19-2020 - [facility] performed - reason not given 05-19-2020 [facility] Ort [facility]edi [facility] ic (79880) BMI documented as above 05-19-2020 - [facility] normal parameters - 05-19-2020 [facility] - follow-up documented [facility] (73398) Documentation of current 05-19-2020 - [facility] medications 05-19-2020 [facility] ic (62585) Pain assessment not 05-19-2020 - [facility] documented - reason not 05-19-2020 [facility] Orthopae dic Center - given [facility] ic (52257) Tobacco non-user 05-19-2020 - [facility]hma [facility] 05-19-2020 INSTALLMENT LOAN COL[facility]OR[facility] ic (71484) NEGATED: Highlighted 04-02-2020 - [facility] rowDocumentation of current 04-02-2020 [facility] - medications [facility] ic (62329) BASIC LUMBAR SUPPORT (BREG) 04-02-2020 - Nicholas [facility] 04-02-2020 [facility] Clin ic (50017) Blood pressure screening not 04-02-2020 - Nicholas Hernandez [facility] performed - reason not given 04-02-2020 [facility] [place] [facility] ic (02188) BMI documented as above 04-02-2020 - Nicholas [facility] normal parameters - 04-02-2020 [facility] - follow-up documented [facility] (97760) Documentation of current 04-02-2020 - Nicholas [facility] medications 04-02-2020 [facility] ic (23047) Pain assessment documented 04-02-2020 - Nicholas Hernandez MD [facility] as positive - follow-up 04-02-2020 [facility] - documented [facility] ic (99933) Tobacco non-user 04-02-2020 - Nicholas Hernandez [facility] 04-02-2020 [facility] ic (54920) Plan of Treatment Plan Description Date Location Appointment Appointment 05-19-2020 - [facility] 05-19-2020 [facility] ic (31313) Appointment Appointment 04-02-2020 - [facility] 04-02-2020 [facility] ic (73226) XR LUMBAR 4VWS FLEX/EX XR LUMBAR 4VWS FLEX/EX 04-02-2020 - [facility] 04-02-2020 [facility] Clin ic (74264) Payers Payer Name Policy Number Location [facility] [id number] [facility] ([id number]) [id number] [facility] (74150) [id number] [facility] (86951) [id number] [facility] ([id number]) [id number] [facility] ([id number]) [id number] [facility] (08662) The following information is from the original human readable contentNo Payer Records FoundNo Payer Records FoundNo Payer Records FoundNo Payer Records FoundNo Payer Records Found Social History Type Social History Date Location Description NEGATED: Highlighted Alcohol use 04-02-2020 - [facility] rowAlcohol use 04-02-2020 [facility] (88723) NEGATED: Highlighted Details of drug misuse 04-02-2020 - [facility] rowDetails of drug behavior 04-02-2020 [facility]opa[facility] C enter - misuse behavior [facility] ic (70066) NEGATED: Highlighted Never smoker 04-02-2020 - [facility] rowAssertion 04-02-[address] [facility] (15329) Assertion Unknown if ever smoked 05-19-2020 - [facility] 05-19-[address] [facility] (45980) The following information is from the original [...] BE BASED ON THE PRIMARY CLINICAL RECORDS. [facility] provides no warranty or guarantee of the accuracy or completeness of information in this document. UNRECOGNIZED CONTENT PROVIDED BELOW FOR UNRECOGNIZED SECTION INFORMATION SOURCE DATE CREATED AUTHOR AUTHOR'S ORGANIZATIO N 05/11/2018 [facility] Found [facility]ion ([place]) DATE CREATED AUTHOR AUTHOR'S ORGANIZATIO N 06/18/2020 [facility] DATE CREATED AUTHOR AUTHOR'S ORGANIZATIO N 06/20/2020 [facility] DATE CREATED AUTHOR AUTHOR'S ORGANIZATIO N 08/11/2020 [...]
== END 2020-03-28 20:19 | disposition home or self-care (01) ==
PROVIDERS: Emergency Provider Emergency Medicine; PCP Family Medicine
DX: M51.27 Other intervertebral disc displacement, lumbosacral region (principal); M48.07 Spinal stenosis, lumbosacral region; M48.061 Spinal stenosis, lumbar region without neurogenic claudication; M51.26 Other intervertebral disc displacement, lumbar region; I10 Essential (primary) hypertension; K21.9 Gastro-esophageal reflux disease without esophagitis; Z79.899 Other long term (current) drug therapy
CPT/HCPCS: 72148; 96374; 96375; 99285; A4216; J2405

== ENCOUNTER 2024-05-16 13:53 | Outpatient (CLI) | payer MEDICARE, OTHER, SELFPAY ==
--- NOTE | 2024-05-16 13:56 | BD_ITS ---
STUDY: DUAL ENERGY X-RAY ABSORPTIOMETRY / DXA REASON FOR EXAM: Female, 68 years old. Z780 TECHNIQUE: Bone Mineral Density (BMD) measurements of lumbar spine and bilateral hips were obtained. COMPARISON: None. FINDINGS: Lumbar Spine (L1-L4): g/cm2 (0.862) / T-score (-1.7) / Z-score (0.3) Findings are suggestive of osteopenia with a moderate fracture risk. Left Femur Total: g/cm2 (0.792) / T-score (-1.2) / Z-score (0.1) Left Femoral Neck: g/cm2 (0.688) / T-score (-1.5) / Z-score (0.3) Right Femur Total: g/cm2 (0.834) / T-score (-0.9) / Z-score (0.5) Right Femoral Neck: g/cm2 (0.671) / T-score (-1.6) / Z-score (0.1) BD/Dexa Bone Density Study IMPRESSION: The patient is considered osteopenic as outlined below according to World Fredy Organization (WHO) criteria with a moderate fracture risk. Reference Information: The T-score is the number of standard deviations above or below the standard which is normal for young adults at their peak bone mineral density. The World Health Organization (WHO) interprets the T-scores as follows: Above -1 Normal bone density Between -1 and -2.5 Osteopenia Equal to / or below -2.5 Osteoporosis As a practical clinical guideline, osteopenia may be graded as follows: Mild -1 through -1.5 Moderate -1.6 through -2.0 Severe -2.1 through -2.4 The Z-score is the number of standard deviations above or below age-matched controls. A Z-score of less than -1.5 would be considered abnormal. References: 1. NIH Osteoporosis and Related Bone Diseases www osteo.org 2. International Society for Clinical Densitometry www iscd.org 3. National Osteoporosis Foundation www nof.org Electronically Signed: Wyatt Arroyo MD at 10:42 EDT ,
== END 2024-05-16 23:59 | disposition home or self-care (01) ==
LOC: OPBD 13:55
PROVIDERS: PCP Family Medicine; Referring Provider Internal Medicine Endocrinology, Diabetes & Metabolism; Visit Provider Internal Medicine Endocrinology, Diabetes & Metabolism
DX: S42.309A Unspecified fracture of shaft of humerus, unspecified arm, initial encounter for closed fracture (principal); Z13.820 Encounter for screening for osteoporosis; X58.XXXA Exposure to other specified factors, initial encounter; Z78.0 Asymptomatic menopausal state
CPT/HCPCS: 77080